=== PATIENT | male | born 2000 | race Asian ===

== ENCOUNTER 2020-05-18 17:58 | Emergency (ER) | payer OTHER ==
[~2020-05-18] VITALS: Ht 172.7 cm; Wt 63.5 kg
[2020-05-18 18:15] VITALS: Ht 172.7 cm; Wt 63.5 kg
[2020-05-18 18:36] LABS: microscopic required? NO
[2020-05-18 18:51] LABS: urine erythrocyte NEGATIVE (NEGATIVE)
[2020-05-18 18:54] LABS: BASOPHIL % 0.3 % (0.2-1.5); PLATELET COUNT 263 x10^3mcL (152-348); RED CELL DISTRIBUTION WIDTH 12.5 % (12.1-16.2)
[2020-05-18 19:01] LABS: CALCIUM 9.6 mg/dL (8.5-10.1); CARBON DIOXIDE 23.4 mmol/L (21-32); CHLORIDE SERUM 104 mmol/L (98-107); CREATININE SERUM 1.1 mg/dL (0.7-1.3); GFR1 > 60 mL/min; GLUCOSE SERUM 109 mg/dL (74-106); SODIUM SERUM 139 mmol/L (136-145)
[2020-05-18 19:05] LABS: ALBUMIN 4.7 g/dL (3.4-5.0); ALKALINE PHOSPHATASE 48 U/L (46-116); ALT/SGPT 19 U/L (16-63); AST/SGOT 20 U/L (15-37); BILIRUBIN TOTAL 1.5 mg/dL (0.20-1.00); TOTAL PROTEIN, SERUM 7.5 g/dL (6.4-8.2)
[2020-05-18 19:07] LABS: AMPHETAMINE QUAL UR NONE DETECTED (See below)
--- NOTE | 2020-05-18 23:51 | NUR ---
Received patient information. Intake was faxed to the following facilities for possible bed placement. [facility]/ [facility]/ [facility]/ [facility]/ [facility] Will keep facility informed of any updates
[2020-05-19 15:11] VITALS: BP 105/54
== END 2020-05-19 15:12 | disposition home or self-care (01) ==
LOC: ED 17:58
PROVIDERS: Specialist
DX: R45.851 Suicidal ideations (principal); F41.9 Anxiety disorder, unspecified; F32.9 Major depressive disorder, single episode, unspecified; Z20.828 Contact with and (suspected) exposure to other viral communicable diseases
CPT/HCPCS: G0480; Q0177; U0003